=== PATIENT | male | born 1980 | race Hispanic/Latino ===

== ENCOUNTER 2018-01-11 16:38 | Emergency (ER) | payer OTHER ==
[~2018-01-11] VITALS: Ht 165.1 cm; Wt 104.3 kg
[~2018-01-11 16:38] MED LIST: AUGMENTIN 875-1 EACH PO; PREDNISONE50 M1 PO; VENTOLIN HFA18 GM INH
[2018-01-11] MEDS ORDERED: AUGMENTIN 875-1 EACH PO ×2 (18:44→18:47)
[2018-01-11] MEDS ORDERED: CIPRODEX OTIC7.5 ML OT (18:47)
--- NOTE | 2018-01-11 18:47 | ED EAR COMPLAINT ---
History of Present Illness General Chief Complaint: Ear Complaints Stated Complaint: PT IS HAVING PAIN IN THE RT EAR Source: patient Exam Limitations: no limitations Vital Signs & Intake/Output Vital Signs & Intake/Output Vital Signs Date Time Temp Pulse Resp B/P B/P Pulse O2 O2 Flow FiO2 Mean Ox Delivery Rate 01/11 1702 98.4 83 18 121/77 98 Room Air Allergies Coded Allergies: aspirin (Severe, RASH 01/11/18) Reconcile Medications Albuterol Sulfate (Ventolin Hfa) 90 MCG HFA.AER.AD 2 PUF INH Q4-6 PRN PRN wheezing Amoxicillin/Potassium Clav (Augmentin 875-125 Tablet) 875 MG-125 MG TABLET 1 TAB PO BID PAIN Amoxicillin/Potassium Clav (Augmentin 875-125 Tablet) 875 MG-125 MG TABLET 1 TAB PO BID OTITIS MEDIA Amoxicillin/Potassium Clav (Augmentin 875-125 Tablet) 875 MG-125 MG TABLET 1 TAB PO BID bronchitis Ciprofloxacin HCl/Dexameth (Ciprodex Otic Suspension) 0.3 %-0.1 % DROPS.SUSP 4 GTT OT BID OTITIS EXTERNA Prednisone 50 MG TABLET 1 TAB PO DAILY bronchitis Triage Note: 37 YO MALE TO TRIAGE FOR R EAR PAIN AND ?CLOGGED PER PT. STATES HE CANNOT HEAR OUT OF IT. Triage Nurses Notes Reviewed? yes Onset: Abrupt Duration: week(s): (1), constant, continues in ED, getting worse Timing: single episode today Injury Environment: home Severity: mild, moderate Severity Numbers: 6 No Modifying Factors: none HPI: 37-year-old male with no past medical history of present for evaluation of right ear pain. Patient reports symptoms started about one week ago and persistent. Pain is located in the right ear. He reports associated clogged feeling. This been no discharge no fevers. No trauma. No sore throat or any other associated symptoms. Has not taken any medicine. No tinnitus. Past History Travel History Traveled to [place] past 21 day No Medical History Any Pertinent Medical History? see below for history Neurological: NONE EENT: NONE Cardiovascular: NONE Respiratory: asthma Gastrointestinal: NONE Hepatic: NONE Renal: NONE Musculoskeletal: NONE Psychiatric: NONE Endocrine: NONE Blood Disorders: NONE Cancer(s): NONE ARTIST'S REPRESENTATIVE/Reproductive: NONE Surgical History Surgical History: none Psychosocial History What is your primary language Ma[place] Tobacco Use: Never used Family History Hx Contributory? No Review of Systems Review of Systems Constitutional: Reports: no symptoms. EENTM: Reports: ear pain. Respiratory: Reports: no symptoms. Cardiovascular: Reports: no symptoms. GI: Reports: no symptoms. Genitourinary: Reports: no symptoms. Musculoskeletal: Reports: no symptoms. Skin: Reports: no symptoms. Neurological/Psychological: Reports: no symptoms. Hematologic/Endocrine: Reports: no symptoms. Immunologic/Allergic: Reports: no symptoms. All Other Systems: Reviewed and Negative Physical Exam Physical Exam General Appearance: well developed/nourished, no apparent distress, alert, awake Head: atraumatic, normal appearance Eyes: Bilateral: normal appearance, PERRL, EOMI. Ears: Left: canal normal, Tympanic normal. Right: erythema, swelling, tenderness, other (SEE COMMENTS ). Nose: normal inspection Mouth/Throat: normal mouth inspection, pharynx normal Neck: normal inspection, supple, full range of motion Cardiovascular/Respiratory: normal breath sounds, normal peripheral pulses, regular rate/rhythm, no respiratory distress Back: normal inspection, normal range of motion Neurologic/Psych: no motor/sensory deficits, awake, alert, oriented x 3, normal gait Skin: intact, normal color, warm/dry Comments: Patient is here with left ear pain. On exam the left external auditory canal is erythematous and edematous. There is pain with insertion of the speculum. The tympanic memory and is unable to visualize due to swelling. No discharge. No mastoid tenderness no pERIAURICULAR lymphadenopathy Progress Differential Diagnoses I considered the following diagnoses in my evaluation of the patient: [Otitis media otitis externa cerumen impaction foreign body mastoiditis] Plan of Care: Patient is here with otitis externa. The tympanic membrane is unable to visualized to patient will be treated for otitis externa and otitis media with Ciprodex and Augmentin. Advised rest Tylenol ibuprofen apply warm compresses discussed return precautions patient agrees the plan Initial ED EKG: none Departure Departure Disposition: HOME OR SELF CARE Condition: Stable Clinical Impression Primary Impression: Otitis externa Qualifiers: Otitis externa type: other infective Chronicity: acute Laterality: right Qualified Code: H60.391 - Other infective otitis externa, right ear Referrals: Krupa JACQUES,Ayan VASQUEZ,Chel Genao (PCP/Family) Additional Instructions: APPLY ANTIBIOTIC DROPS AND TAKE ORAL ANTIBIOTICS FOR FULL COURSE. IBUPROFEN TYLENOL FOR PAIN. FOLLOW UP WITH ENT DOCTOR. RETURN WITH ANY CONCERNS. Departure Forms: Customer Survey General Discharge Information Prescriptions: Current Visit Scripts Amoxicillin/Potassium Clav (Augmentin 875-125 Tablet) 1 TAB PO BID #20 TAB Amoxicillin/Potassium Clav (Augmentin 875-125 Tablet) 1 TAB PO BID #20 TAB Ciprofloxacin HCl/Dexameth (Ciprodex Otic Suspension) 4 GTT OT BID #1 BOT
[2018-01-11 18:48] VITALS: BP 119/74
== END 2018-01-11 18:49 ==
LOC: ERH 16:38
DX: H60.92 Unspecified otitis externa, left ear (principal)